=== PATIENT | male | born 1975 | race Two or more races ===

== ENCOUNTER 2017-08-07 20:45 | Observation (INO) | payer SELFPAY ==
[2017-08-07 21:13] LABS: ADD MAN DIFF? NO
[2017-08-07 21:15] LABS: BASO # 0.1 x10^3/uL (0.0-0.2); BASO % 1 % (0-3); EOS # 0.2 x10^3/uL (0.0-0.7); EOS % 3 % (0-3); HEMATOCRIT 39.7 % (39.0-53.0); HEMOGLOBIN 13.9 g/dL (13.0-17.5); LYMPH # 2.7 x10^3/uL (1.0-4.8); LYMPH % 38 % (24-48); MEAN CORPUSCULAR HEMOGLOBIN 30 pg (25-35); MEAN CORPUSCULAR HGB CONC 35 g/dL (31-37); MEAN CORPUSCULAR VOLUME 85 fL (79-100); MONO # 0.5 x10^3/uL (0.0-1.1); MONO % 7 % (0-9); NEUT # 3.5 x10^3uL (1.8-7.7); NEUT % 50 % (31-73); PLATELET COUNT 211 x10^3/uL (140-400); RED BLOOD COUNT 4.69 x10^6/uL (4.30-5.70); RED CELL DISTRIBUTION WIDTH 14.5 % (11.5-14.5); WHITE BLOOD COUNT 6.9 x10^3/uL (4.0-11.0)
[2017-08-07] MEDS: ASPIRIN CHEWABLE 81 MG TABLET. PO (21:24)
[2017-08-07] MEDS: IV NORMAL SALINE 1000ML BAG 1,000 ML IV (21:25)
[2017-08-07 21:28] LABS: ANION GAP 8 (6-14); BLOOD UREA NITROGEN 18 mg/dL (8-26); BUN/CREATININE RATIO 18 (6-20); CALCIUM 9.1 mg/dL (8.5-10.1); CARBON DIOXIDE 27 mmol/L (21-32); CHLORIDE 104 mmol/L (98-107); GFR 81.6; GLUCOSE 143 mg/dL (70-99); POTASSIUM 3.6 mmol/L (3.5-5.1); SODIUM 139 mmol/L (136-145)
[2017-08-07 21:33] LABS: ALBUMIN 3.7 g/dL (3.4-5.0); TOTAL BILIRUBIN 0.5 mg/dL (0.2-1.0); TOTAL PROTEIN 7.4 g/dL (6.4-8.2)
[2017-08-07 21:47] LABS: TROPONINI < 0.017 ng/mL (0.000-0.055)
[2017-08-07 22:03] LABS: ALK PHOS 105 U/L (46-116); ALT (SGPT) 169 U/L (16-63); AST (SGOT) 78 U/L (15-37)
[2017-08-07] MEDS ORDERED: ACETAMINOPHEN 325 MG TABLET. PO (23:00)
[2017-08-08 02:35] LABS: TROPONINI < 0.017 ng/mL (0.000-0.055)
[2017-08-08 06:47] LABS: TROPONINI < 0.017 ng/mL (0.000-0.055)
[2017-08-08] MEDS ORDERED: ONDANSETRON PF 4 MG/2 ML VIAL. IV (09:45)
[2017-08-08] MEDS ORDERED: IBUPROFEN 600 MG TABLET. PO (09:45)
[2017-08-08 11:35] LABS: CHOLESTEROL 225 mg/dL (0-200); HDLC 19 mg/dL (40-60); NON-HDL CHOLESTEROL 206 mg/dL (0-129)
[2017-08-08 11:42] LABS: THYROID STIM HORMONE (TSH) 11.911 uIU/mL (0.358-3.74)
[2017-08-08 11:57] LABS: TRIGLYCERIDES 774 mg/dL (0-150); VLDLC 155 mg/dL (0-40)
[2017-08-08 12:11] LABS: CHOLESTEROL/HDL RATIO 11.8
[2017-08-08] MEDS: LEVOTHYROXINE 100 MCG TABLET PO (14:54)
[2017-08-08] MEDS: FENOFIBRATE 54 MG TABLET. PO (14:54)
== END 2017-08-08 17:17 | disposition home or self-care (01) ==
LOC: ER 20:45 → 6 SOUTH 22:55
DX: R07.9 Chest pain, unspecified (principal); D23.39 Other benign neoplasm of skin of other parts of face; E03.9 Hypothyroidism, unspecified; Z82.49 Family history of ischemic heart disease and other diseases of the circulatory system
CPT/HCPCS: 36415; 70450; 71045; 78452; 80053; 80061; 84443; 84484; 85025; 93005; 93017; 96360; 96361; 96374; 96376; 99285-25; A9500; G0378; G0379; J7030

== ENCOUNTER 2019-02-04 20:50 | Emergency (ER) | payer SELFPAY ==
[~2019-02-04] VITALS: Ht 175.3 cm; Wt 104.8 kg
[~2019-02-04 20:50] MED LIST: FENO54TA PO; LEVO100T PO
[2019-02-04 21:06] VITALS: BP 166/97
[2019-02-04] MEDS ORDERED: IBUP-1027 PO (21:44)
[2019-02-04] MEDS ORDERED: ORPH100T PO (21:44)
--- NOTE | 2019-02-04 21:46 | PHYS DOC ---
Past Medical History Past Medical History: No Pertinent History Past Surgical History: No Surgical History, Appendectomy Alcohol Use: None Drug Use: None Adult General Chief Complaint Chief Complaint: LOWER BACK PAIN OR INJURY HPI HPI Patient is a 43 year old male who states she's been having lower back pain has been ongoing for 3 weeks. He states he picks up a lot of heavy objects at work as he works in [employer]. He states it hurts when he stands straight up. He rates his pain as 9 out of 10 in severity and sharp. He states it is worse in the morning. Review of Systems Review of Systems Constitutional: Denies fever or chills [] Eyes: Denies change in visual acuity, redness, or eye pain [] HENT: Denies nasal congestion or sore throat [] Respiratory: Denies cough or shortness of breath [] Cardiovascular: No additional information not addressed in HPI [] GI: Denies abdominal pain, nausea, vomiting, bloody stools or diarrhea [] : Denies dysuria or hematuria [] Musculoskeletal: Reports lower right sided back pain.] Integument: Denies rash or skin lesions [] Neurologic: Denies headache, focal weakness or sensory changes [] Endocrine: Denies polyuria or polydipsia [] Complete systems were reviewed and found to be within normal limits, except as documented in this note. Allergies Allergies Allergies Coded Allergies Type Severity Reaction Last Updated Verified No Known Drug Allergies 12/08/13 No Physical Exam Physical Exam Constitutional: Well developed, well nourished, no acute distress, non-toxic appearance. [] HENT: Normocephalic, atraumatic, bilateral external ears normal, oropharynx moist, no oral exudates, nose normal. [] Eyes: PERRLA, EOMI, conjunctiva normal, no discharge. [] Neck: Normal range of motion, no tenderness, supple, no stridor. [] Skin: Warm, dry, no erythema, no rash. [] Back: Tenderness on palpation to right side of lower back. Extremities: No tenderness, no cyanosis, no clubbing, ROM intact, no edema. [] Neurologic: Alert and oriented X 3, normal motor function, normal sensory function, no focal deficits noted. [] Psychologic: Affect normal, judgement normal, mood normal. [] Current Patient Data Vital Signs Vital Signs Date Time Temp Pulse Resp B/P (MAP) Pulse Ox O2 Delivery O2 Flow Rate FiO2 02/04/19 21:06 97.6 78 18 166/97 (120) 95 Room Air 97.6 EKG EKG [] Radiology/Procedures Radiology/Procedures [] Course & Med Decision Making Course & Med Decision Making Pertinent Labs and Imaging studies reviewed. (See chart for details) Appears to be musculoskeletal in nature. Discussed with patient taking muscle relaxer before bedtime. Discussed Ibuprofen, and discussed non pharmacological measures such as foam roller and Thermaheat. Dragon Disclaimer Dragon Disclaimer This electronic medical record was generated, in whole or in part, using a voice recognition dictation system. Departure Departure Impression: Primary Impression: Musculoskeletal back pain Disposition: HOME, SELF-CARE Condition: STABLE Referrals: NO PCP (PCP) Patient Instructions: Musculoskeletal Pain Additional Instructions: Thank you for visiting [facility]. We appreciate you trusting us with your care. If any additional problems come up don't hesitate to return to visit us. Please follow up with your primary care provider so they can plan additional care if needed and know about the problem that you had. If symptoms worsen come back to the Emergency Department. Any concerning symptoms that start such as chest pain, shortness of air, weakness or numbness on one side of the body, running high fevers or any other concerning symptoms return to the ER. Please fill your medications at any pharmacy and follow the prescription instructions. As we discussed try using a foam roller to roll out muscle. I recommend Therma Heat Patches over the counter. Follow the label instructions. Scripts Orphenadrine Citrate (ORPHENADRINE CITRATE) 100 Mg Tablet.er 100 MG PO HS PRN for MUSCLE SPASMS for 10 Days, #10 TAB.SR Prov: ANÍBAL CONNOR APRN 02/04/19 Ibuprofen (IBUPROFEN) 400 Mg Tablet 400 MG PO PRN Q6HRS PRN for INFLAMMATION for 7 Days, #30 TAB Prov: ANÍBAL CONNOR APRN 02/04/19 ANÍBAL CONNOR APRN Feb 04, 2019 21:46
== END 2019-02-04 22:01 | disposition home or self-care (01) ==
LOC: ER 20:50
DX: M54.5 Low back pain (principal); Z90.89 Acquired absence of other organs
CPT/HCPCS: 99283

== ENCOUNTER 2019-03-04 22:01 | Emergency (ER) | payer SELFPAY ==
[~2019-03-04] VITALS: Ht 175.3 cm; Wt 104.8 kg
[~2019-03-04 22:01] MED LIST changes: +IBUP-1027 PO; +ORPH100T PO
--- NOTE | 2019-03-04 22:44 | PHYS DOC ---
Past Medical History Past Medical History: No Pertinent History Past Surgical History: No Surgical History, Appendectomy Alcohol Use: None Drug Use: None Adult General Chief Complaint Chief Complaint: BACK PAIN OR INJURY HPI HPI 43-year-old male presents to the emergency Department complaints of right low back pain. Patient denies any recent injury he states he had similar complaints of pain within the last month however bent over to lift something at that time. Patient was seen evaluated in the emergency department. No imaging performed. Today patient states pain started back he denies any nausea, vomiting. Movements make his pain worse. He denies any radiation of pain down his legs or numbness and tingling Review of Systems Review of Systems Constitutional: Denies fever or chills [] Eyes: Denies change in visual acuity, redness, or eye pain [] HENT: Denies nasal congestion or sore throat [] Respiratory: Denies cough or shortness of breath [] Cardiovascular: No additional information not addressed in HPI [] GI: Denies abdominal pain, nausea, vomiting, bloody stools or diarrhea [] : Denies dysuria or hematuria [] Musculoskeletal: Denies back pain or joint pain [] Integument: Denies rash or skin lesions [] Neurologic: Denies headache, focal weakness or sensory changes [] Endocrine: Denies polyuria or polydipsia [] All other systems were reviewed and found to be within normal limits, except as documented in this note. Current Medications Current Medications Current Medications Medications (Trade) Dose Ordered Sig/Patrizia Start Time Stop Time Status Last Admin Dose Admin Ketorolac Tromethamine (Toradol Im) 60 mg 1X ONCE 03/04/19 23:00 03/04/19 23:01 DC 03/04/19 23:09 60 MG Orphenadrine Citrate (Norflex) 60 mg 1X ONCE 03/04/19 23:00 03/04/19 23:01 DC 03/04/19 23:09 60 MG Allergies Allergies Allergies Coded Allergies Type Severity Reaction Last Updated Verified No Known Drug Allergies 12/08/13 No Physical Exam Physical Exam Constitutional: Well developed, well nourished, distress 2/2 pain, non-toxic appearance. [] HENT: Normocephalic, atraumatic, bilateral external ears normal, oropharynx moist, no oral exudates, nose normal. [] Eyes: PERRLA, EOMI, conjunctiva normal, no discharge. [] Cardiovascular:Heart rate regular rhythm, no murmur [] Lungs & Thorax: Bilateral breath sounds clear to auscultation [] Abdomen: Bowel sounds normal, soft, no tenderness, no masses, no pulsatile masses. [] Skin: Warm, dry, no erythema, no rash. [] Back: No tenderness, no CVA tenderness. [] Extremities: No tenderness, no edema. [] Neurologic: Alert and oriented X 3, no focal deficits noted. [] Psychologic: Affect normal, judgement normal, mood normal. [] Current Patient Data Vital Signs Vital Signs Date Time Temp Pulse Resp B/P (MAP) Pulse Ox O2 Delivery O2 Flow Rate FiO2 03/04/19 22:10 97.6 65 18 164/90 (114) 97 Room Air 97.6 Lab Values Laboratory Tests Test 03/04/19 22:15 Urine Collection Type Unknown Urine Color Yellow Urine Clarity Clear Urine pH 5.5 Urine Specific [place] 1.025 Urine Protein Negative mg/dL (NEG-TRACE) Urine Glucose (UA) Negative mg/dL (NEG) Urine Ketones (Stick) Negative mg/dL (NEG) Urine Blood Negative (NEG) Urine Nitrite Negative (NEG) Urine Bilirubin Negative (NEG) Urine Urobilinogen Dipstick 1.0 mg/dL (0.2 mg/dL) Urine Leukocyte Esterase Negative (NEG) Urine RBC 0 /HPF (0-2) Urine WBC Rare /HPF (0-4) Urine Squamous Epithelial Cells Occ /LPF Urine Bacteria 0 /HPF (0-FEW) Urine Mucus Slight /LPF EKG EKG [] Radiology/Procedures Radiology/Procedures [] Course & Med Decision Making Course & Med Decision Making Pertinent Labs and Imaging studies reviewed. (See chart for details) []43-year-old male presents to the emergency Department complaints of right low back pain. Patient denies any recent injury he states he had similar complaints of pain within the last month however bent over to lift something at that time. Patient was seen evaluated in the emergency department. No imaging performed. Today patient states pain started back he denies any nausea, vomiting. Movements make his pain worse. He denies any radiation of pain down his legs or numbness and tingling UAD negative for infection/blood No imaging at this time given no new injury' Norflex/Toradol given in ER Recommend dc and follow up as outpatient with PCP Return precautions provided Dom Disclaimer Dom Disclaimer This electronic medical record was generated, in whole or in part, using a voice recognition dictation system. Departure Departure Impression: Primary Impression: Musculoskeletal back pain Disposition: HOME, SELF-CARE Condition: IMPROVED Referrals: NO PCP (PCP) Patient Instructions: Back Pain, Adult, [id number] Additional Instructions: Recommend follow up with PCP 3 - 5 days Return to the ER with worsening symptoms, intractable pain, fever, altered mental status Tylenol/Motrin as needed for pain Norflex/Toradol IM in ER Rx provided for zanaflex and diclofenac Scripts Tizanidine Hcl (ZANAFLEX) 4 Mg Tablet 1 TAB PO BID for 10 Days, #20 TAB 0 Refills Prov: TORIN CHAVEZ MD 03/04/19 Diclofenac Potassium (DICLOFENAC POTASSIUM) 50 Mg Tablet 1 TAB PO BID for 4 Days, #8 TAB 1 Refill Prov: TORIN CHAVEZ MD 03/04/19 TORIN CHAVEZ MD Mar 04, 2019 22:44
[2019-03-04 22:52] LABS: BILIRUBIN,URINE NEGATIVE (NEG); CLARITY,URINE CLEAR; COLOR,URINE YELLOW; NITRITE,URINE NEGATIVE (NEG); PH,URINE 5.5; PROTEIN,URINE NEGATIVE (NEG-TRACE)
[2019-03-04 22:56] LABS: SQUAMOUS EPITHELIAL CELL,UR OCC /LPF
[2019-03-04 22:57] LABS: BACTERIA,URINE 0 /HPF (0-FEW); RBC,URINE 0 /HPF (0-2); WBC,URINE RARE /HPF (0-4)
[2019-03-04] MEDS ORDERED: ORPHENADRINE CITRATE 60 MG/2 ML VIAL. IM ONE (23:00)
[2019-03-04] MEDS ORDERED: KETOROLAC 60 MG/2 ML VIAL. IM ONE (23:00)
[2019-03-04] MEDS ORDERED: TIZA4TAB8 PO (23:21)
[2019-03-04] MEDS ORDERED: DICL50TA2 PO (23:21)
[2019-03-04 23:35] VITALS: BP 135/70
== END 2019-03-04 23:35 | disposition home or self-care (01) ==
LOC: ER 22:01
DX: M54.5 Low back pain (principal); Z90.49 Acquired absence of other specified parts of digestive tract
CPT/HCPCS: 81001; 96372; 99284; J1885; J2360